=== PATIENT | male | born 1970 | race Caucasian/White ===

== ENCOUNTER 2021-05-10 08:05 | Day surgery (SDC) | payer OTHER ==
[2021-05-10] MEDS ORDERED: Propofol 200 MG/20 ML SDV IV ONE (08:06)
[2021-05-10] MEDS ORDERED: Ketamine 500 mg/10 ML MDV IV ONE (08:06)
[2021-05-10] MEDS ORDERED: Midazolam 1 MG/ML 2 ML SDV IV ONE (08:06)
[2021-05-10] MEDS ORDERED: Lactated Ringers 1,000 ML IV SCH (08:45)
[2021-05-10] MEDS ORDERED: Sodium Chloride 0.9% 10 ML Syringe FLUSH PRN (08:45)
== END 2021-05-10 11:58 | disposition home or self-care (01) ==
LOC: FB.SDS 08:05
PROVIDERS: ATTEND Surgery
DX: R19.4 Change in bowel habit (principal); E78.00 Pure hypercholesterolemia, unspecified; F41.9 Anxiety disorder, unspecified; F32.A Depression, unspecified; Z87.891 Personal history of nicotine dependence; Z79.899 Other long term (current) drug therapy
CPT/HCPCS: 00811; 45378; J2250; J2704; J3490; J7120